=== PATIENT | female | born 1960 | race Caucasian/White ===

== ENCOUNTER 2024-11-16 16:37 | Emergency (ER) | payer MEDICARE ==
[~2024-11-16] VITALS: Ht 160 cm; Wt 77.1 kg
[2024-11-16] MEDS ORDERED: ULTRAM 50MG50 MG PO (18:56)
[2024-11-16] MEDS ORDERED: ONDANSETRON ODT4 MG PO (18:58)
[2024-11-16] MEDS: TRAMADOL HCL 50 MG TAB PO STA (19:01)
[2024-11-16 19:02] VITALS: PULSE 88; RESP 16; TEMP 98.6; O2SAT 97
== END 2024-11-16 18:55 | disposition home or self-care (01) ==
LOC: ER 17:10
DX: M25.561 Pain in right knee (principal); R55 Syncope and collapse; W01.0XXA Fall on same level from slipping, tripping and stumbling without subsequent striking against object, initial encounter; Y93.E3 Activity, vacuuming; Y92.89 Other specified places as the place of occurrence of the external cause; R94.31 Abnormal electrocardiogram [ECG] [EKG]
CPT/HCPCS: 70450; 93005; 99284

== ENCOUNTER → 2024-12-24 | Day surgery (SDC) | payer MEDICARE ==
[2024-12-17 11:04] LABS: BASOPHILS # (AUTO) 0.1 (0.0-0.1); BASOPHILS % 0.7 % (0.0-1.0); EOSINOPHILS # (AUTO) 0.1 (0.0-0.4); EOSINOPHILS % 1.2 % (0.0-6.0); HEMATOCRIT 44.6 % (34.2-44.1); HEMOGLOBIN 15.5 g/dL (12.0-16.0); LYMPHOCYTES # (AUTO) 1.5 (1.0-3.2); LYMPHOCYTES % 20.3 % (18.0-39.1); MEAN CORPUSCULAR HEMOGLOBIN 30.8 pg (28-32); MEAN CORPUSCULAR HGB CONC 34.8 g/dL (31-35); MEAN CORPUSCULAR VOLUME 88.5 fL (81-99); MONOCYTES # (AUTO) 0.7 (0.2-0.8); MONOCYTES % 8.9 % (4.4-11.3); NEUTROPHILS # (AUTO) 5.2 (2.1-6.9); NEUTROPHILS % 68.6 % (38.7-80.0); PLATELET COUNT 290 x10e3/uL (140-360); RED BLOOD COUNT 5.04 x10e6/uL (3.6-5.1); WHITE BLOOD COUNT 7.57 x10e3/uL (4.8-10.8)
[2024-12-17 11:42] LABS: ALBUMIN 4.2 g/dL (3.5-5.0); ALBUMIN/GLOBULIN RATIO 1.2 (0.8-2.0); ANION GAP 15.3 mmol/L (8-16); BILIRUBIN,TOTAL 0.5 mg/dL (0.2-1.2); CALCIUM 9.7 mg/dL (8.4-10.2); CREATININE, SERUM 0.71 mg/dL (0.57-1.11); POTASSIUM 4.3 mmol/L (3.5-5.1); TOTAL PROTEIN 7.7 g/dL (6.5-8.1)
[~2024-12-24] MED LIST: ALLERY MED PO; BUPIVACAINE LIPOSOME/PF 266 MG/20 ML IJ ONE; BUPIVACAINE/EPI 0.5% 30ML SDV-MPF INJ ONE; CALCIUM + VIT1 EACH PO; CEFAZOLIN SODIUM 2 GM ONE; CHROMIUM400 MCG PO; DEXAMETHASONE SOD PHOS INJ 4 MG/ML SDV ONE; FENTANYL CITRATE/PF 100MCG/2 ML INJ ONE; LIDOCAINE HCL 2% LOCAL INJ 5 ML SDV VIAL INJ ONE; LIPITOR10 MG PO; LOSARTAN POTAS100 MG PO; MAGNESIUM OXID400 MG PO; MIDAZOLAM HCL 2 MG/2 ML VIAL ONE; ONDANSETRON HCL INJ 2MG/ML 2ML 2 MG/ML VIAL ONE; ONDANSETRON ODT4 MG PO; PROPOFOL IV EMULSION 10 MG/ML 20 ML VIAL ONE; SEVOFLURANE INHAL SOLN 250 ML PEN BTL ONE; ULTRAM 50MG50 MG PO
[2024-12-24] MEDS: LACTATED RINGER'S 1,000 ML ONE (10:26)
[2024-12-24 14:30] VITALS: BP 142/81; PULSE 71; RESP 18; O2SAT 98
== END | disposition home or self-care (01) ==
LOC: OR 09:08
PROVIDERS: ATTEND Orthopaedic Surgery
DX: S83.511A Sprain of anterior cruciate ligament of right knee, initial encounter (principal); S83.241A Other tear of medial meniscus, current injury, right knee, initial encounter; S83.281A Other tear of lateral meniscus, current injury, right knee, initial encounter; M22.41 Chondromalacia patellae, right knee; M65.161 Other infective (teno)synovitis, right knee; M67.51 Plica syndrome, right knee; G47.33 Obstructive sleep apnea (adult) (pediatric); I10 Essential (primary) hypertension; E78.5 Hyperlipidemia, unspecified; X58.XXXA Exposure to other specified factors, initial encounter; Y93.E9 Activity, other interior property and clothing maintenance; Z01.810 Encounter for preprocedural cardiovascular examination; Z01.812 Encounter for preprocedural laboratory examination; Z01.818 Encounter for other preprocedural examination; Z79.1 Long term (current) use of non-steroidal anti-inflammatories (NSAID); Z79.899 Other long term (current) drug therapy
CPT/HCPCS: 27428; 29882; 36415; 71046; 80053; 85025; 93005; C1713; C1776; J0666; J1100; J2003; J2250; J2405; J2704; J3010; J7121